=== PATIENT | female | born 1965 | race Caucasian/White ===

== ENCOUNTER → 2017-02-12 | Outpatient (CLI) | payer BC ==
[~2017-02-12] MED LIST: CALC600T9 PO; LISI-729 PO; MULT-506 PO; OMEG10002 PO; SLWMEC PO
--- NOTE | 2017-02-12 08:22 | DIAGNOSTIC IMAGING REPORT ---
ULTRASOUND RIGHT LOWER EXTREMITY NONVASCULAR CLINICAL HISTORY: Soft tissue mass. Medial right thigh swelling. COMPARISON STUDY: No priors. FINDINGS: Real-time, grayscale, and color flow sonography of the soft tissues of the medial aspect of the distal right thigh/knee is performed dedicated site of interest. There is a small, nonvascular, and minimally complex subcutaneous fluid collection at this site measuring 4.8 x 1.0 x 2.4 cm. In the more posterior aspect of the distal thigh there is a 7 mm well-circumscribed echogenic structure in the subcutaneous fat, possibly representing a tiny lipoma. Survey images of the left thigh are performed for comparison purposes and show no abnormality. IMPRESSION: 1. The finding of palpable concern corresponds to a minimally complex nonvascular collection posterior/medial to the knee. This is of low suspicion and could represent a hematoma or possibly the sequela of a ruptured Mauricio's cyst. Clinical correlation will be essential and clinical follow-up to resolution is recommended. 2. Question a tiny lipoma within the subcutaneous fat in this region. Dictated: 02/12/2017 7:58 AM Transcribed: 02/12/2017 8:22 AM [place] Electronically signed by: Sean Naylor M.D. 02/12/2017 8:23 AM Dictated Date/Time: 02/12/2017 7:58 AM
== END | disposition home or self-care (01) ==
LOC: C.ULTR 06:31
PROVIDERS: ATTEND Nurse Practitioner Family
DX: M25.551 Pain in right hip (principal); R22.41 Localized swelling, mass and lump, right lower limb

== ENCOUNTER → 2017-06-03 | Outpatient (CLI) | payer BC ==
--- NOTE | 2017-06-03 15:19 | MAMMOGRAPHY REPORT ---
BILATERAL DIGITAL SCREENING MAMMOGRAM TOMOSYNTHESIS WITH CAD: 06/03/2017 CLINICAL HISTORY: Routine screening. Patient has no complaints. TECHNIQUE: Breast tomosynthesis in addition to standard 2D mammography was performed. Current study was also evaluated with a Computer Aided Detection (CAD) system. COMPARISON: Comparison is made to exams dated: 05/20/2016 mammogram, 05/15/2015 mammogram, 05/08/2014 venita mogram, 04/21/2013 mammogram, 04/16/2012 mammogram, and 04/10/2011 mammogram - [facility] BREAST COMPOSITION: The tissue of both breasts is heterogeneously dense, which may obscure small mas ses. FINDINGS: No suspicious masses, calcifications, or areas of architectural distortion are noted in ei ther breast. There has been no significant interval change compared to prior exams. IMPRESSION: ACR BI-RADS CATEGORY 1: NEGATIVE There is no mammographic evidence of malignancy. A 1 year screening mammogram is recommended. The pa tient will receive written notification of the results. Approximately 10% of breast cancers are not detected with mammography. A negative mammographic report should not delay biopsy if a clinically suggestive mass is present. Nasreen Estrada M.D. ah/:06/03/2017 08:48:44 [employer] Professor: Renetta MELENDREZ([place])(M), [facility] letter sent: Normal 1/2 BI-RADS Code: ACR BI-RADS Category 1: Negative
== END | disposition home or self-care (01) ==
LOC: C.MAMM 07:09
PROVIDERS: ATTEND Obstetrics & Gynecology
DX: Z12.31 Encounter for screening mammogram for malignant neoplasm of breast (principal)